=== PATIENT | male | born 1950 | race Caucasian/White ===

== ENCOUNTER 2017-02-16 15:59 | Outpatient (CLI) ==
[2013-04-08 11:27] VITALS: TEMP 97.8
[2016-01-21 17:25] VITALS: BMI 16.9
--- NOTE | 2017-02-16 16:24 | DI ---
EXAM: Two views of the chest. History: Abnormal weight loss. Comparison: Chest radiograph 01/21/2016, chest radiograph 05/10/2013 Findings: Heart size is normal. No focal consolidation. No appreciable pleural fluid and no pneum othorax. Biapical scarring again noted. Hyperinflation with increase in retrosternal clear space. Atherosclerotic vascular calcifications Impression: No acute cardiopulmonary process. Possible chronic obstructive pulmonary disease.
== END 2017-02-16 16:00 | disposition home or self-care (01) ==
LOC: RAD 15:59
PROVIDERS: ATTEND Family Medicine
DX: R63.4 Abnormal weight loss (principal)

== ENCOUNTER 2017-03-15 15:42 | Emergency (ER) | payer OTHER ==
[2017-03-15 15:50] VITALS: BP 142/83; TEMP 98.6; BMI 17.9
--- NOTE | 2017-03-15 15:58 | ED.PDOC ---
General ED Provider: Dr. LORETTA BARRIOS-ER Chief Complaint: Tooth Problem Stated Complaint: bulmaro got a bad tooth Time Seen by Physician: 15:56 Mode of Arrival: Walk-In Information Source: Patient, Family Exam Limitations: No limitations Nursing and Triage Documentation Reviewed and Agree: Yes EENT Complaint Exam - Dental/Oral Complaint/Exam Mechanism of Injury: No known trauma Onset/Duration: 3 days Symptoms Are: Still present Timing: Constant Initial Severity: Mild Current Severity: Mild Location: left lower incisor Character: Reports: Dull, Aching, Throbbing Aggravating: Reports: Heat, Cold, Chewing Alleviating: Reports: None Associated Signs and Symptoms: Reports: Swelling, Discharge. Denies: Fever, Foul odor, Foul taste in mouth Related History: Reports: Previous tooth problem Cardiac Risk Factors: Reports: Smoking Tooth Findings: Present: Percussion tenderness, Gross decay, Gross caries, Abcess Cervical Lymphadenopathy Present: Yes Facial Swelling Present: No Bleeding Present: No Oropharynx Findings: Absent: Clots, Active bleeding Septal Hematoma: No Foreign Body Present: No Dysphagia Present: No Drooling Present: No Asymmetrical Tonsillar Swelling Present: No Uvula Midline: Yes Traci-tonsillar Fluctuence: No Trismus Present: No Palatal Petechiae Present: No Scarlatinaform Rash Present: No Differential Diagnoses: Dental Abcess, Dental Caries, Odontogenic Pain Review of Systems - Review Of Systems Constitutional: Reports: No symptoms Eyes: Reports: No symptoms Ears, Nose, Mouth, Throat: Reports: Mouth pain, Mouth swelling Respiratory: Reports: No symptoms Cardiac: Reports: No symptoms GI: Reports: No symptoms : Reports: No symptoms Musculoskeletal: Reports: No symptoms Skin: Reports: No symptoms Neurological: Reports: No symptoms Endocrine: Reports: No symptoms Hematologic/Lymphatic: Reports: No symptoms All Other Systems: Reviewed and Negative Past Medical History - Past Medical History Previously Healthy: No Endocrine: Reports: None Cardiovascular: Reports: None Respiratory: Reports: None Hematological: Reports: None Gastrointestinal: Reports: None Genitourinary: Reports: None Neuro/Psych: Reports: None Musculoskeletal: Reports: None Cancer: Reports: None - Surgical History General Surgical History: Reports: Unknown - Family History Family History: Reports: Unknown - Social History Smoking Status: Current every day smoker Hx Substance Use: No Alcohol Screening: None Lives: With family Physical Exam - Physical Exam Appearance: Well-appearing, No pain distress, Well-nourished Pain Distress: Moderate Eyes: TAMELA, EOMI, Conjunctiva clear ENT: Ears normal, Nose normal, Oropharynx normal Neck: Supple Respiratory: Airway patent, Breath sounds clear, Breath sounds equal, Respirations nonlabored Cardiovascular: RRR, Pulses normal, No rub, No murmur GI/: Soft, Nontender, No masses, Bowel sounds normal, No Organomegaly Musculoskeletal: Normal strength, ROM intact, No edema, No calf tenderness Skin: Warm, Dry, Normal color Neurological: Sensation intact, Motor intact, Reflexes intact, Cranial nerves intact, Alert, Oriented Psychiatric: Affect appropriate, Mood appropriate Critical Care Note - Critical Care Note Total Time (mins): 0 Course - Course Vital Signs: Temp Pulse Resp BP Pulse Ox 03/15/17 15:46 98.6 F 65 16 142/83 H 98 Departure - Departure Time of Disposition: 15:58 Disposition: HOME SELF-CARE Discharge Problem: Dental abscess Instructions: Dental Abscess (ED) Condition: Good Pt referred to PMD for follow-up: Yes Additional Instructions: clindmycin 150mg tid x 7days--norco 7.5mg q 4hrs prn pain #10---f/u dentist jade Allergies/Adverse Reactions: Allergies Penicillins Adverse Reaction (Verified 03/15/17 15:48) Home Medications: Ambulatory Orders Atorvastatin Calcium 20 mg PO BEDTIME 03/15/17 Ticagrelor [Brilinta] 90 mg PO BID 03/15/17 Disposition Discussed With: Patient
== END 2017-03-15 16:02 | disposition home or self-care (01) ==
LOC: ED 15:42
DX: K04.7 Periapical abscess without sinus (principal); F17.200 Nicotine dependence, unspecified, uncomplicated
CPT/HCPCS: 99282

== ENCOUNTER 2018-01-25 13:06 | Outpatient (CLI) ==
[2013-04-08 11:27] VITALS: TEMP 97.8
--- NOTE | 2018-01-25 15:02 | DI ---
EXAM: Radiographs, right shoulder HISTORY: Right shoulder pain. COMPARISON: None available. TECHNIQUE: Three views. FINDINGS: Bone mineralization is normal. There is no fracture or dislocation. The joint spaces are maintained. No focal soft tissue abnormality is seen. IMPRESSION: No fracture or dislocation.
== END 2018-01-25 13:07 | disposition home or self-care (01) ==
LOC: RAD 13:06
PROVIDERS: ATTEND Family Medicine
DX: M25.511 Pain in right shoulder (principal)